=== PATIENT | male | born 1990 | race Caucasian/White ===

== ENCOUNTER 2017-03-12 11:09 | Inpatient (IN) | payer MEDICAID ==
[2017-03-12] MEDS ORDERED: Haloperidol Lactate 5 mg/mL 1mL Vial IM STA (11:26)
[2017-03-12] MEDS ORDERED: Haloperidol Lactate 5 mg/mL 1mL Vial ONE (11:30)
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
--- NOTE | 2017-03-12 14:01 | Diagnostic Imaging Report ---
CT scan of the brain without intravenous contrast HISTORY: Headache, trauma Total DLP equals 949 CTDI equals 44.6 Axial sections were obtained from the base of the skull to the vertex. The exam is limited due to difficulty in patient compliance and positioning. Prior exams are not available for comparison. There is marked ventriculomegaly. There is a disproportionate size of the ventricular system compared to the majority of cerebral sulci and subarachnoid cisterns suggesting hydrocephalus. No acute parenchymal abnormalities. No intracerebral hemorrhage. No mass effect or shift of midline structures. 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 IMPRESSION: 1. Limited exam due to difficulty in patient compliance and positioning. 2. Marked ventriculomegaly. Findings may be associated with hydrocephalus. Clinical correlation is needed. 3. No acute parenchymal abnormalities
[2017-03-12 18:04] VITALS: BP 126/87
[2017-03-12] MEDS ORDERED: Hydrocodone/APAP 10 mg/325 mg Tab PO PRN (18:20)
[2017-03-12] MEDS ORDERED: Hydrocodone/APAP 5mg/325mg Tab PO PRN (18:21)
[2017-03-12] MEDS ORDERED: Dextrose 50% 50 mL Abboject IVP PRN (20:15)
[2017-03-12 21:07] LABS: % BASOPHILS 0.8 % (0.0-2.0); % EOSINOPHILS 2.7 % (0.0-5.0); % LYMPHOCYTES 27.2 % (20.0-50.0); % NEUTROPHILS 60.3 % (40.0-80.0); HEMATOCRIT 38.4 % (41.0-60); HEMOGLOBIN 12.8 gm/dL (12-16); MEAN CELL VOLUME 84.6 fl (80-99); MEAN CORPUSCULAR HEMOGLOBIN 28.3 pg (26.0-30.0); MEAN CORPUSCULAR HGB CONC 33.4 pg (28.0-36.0); MEAN PLATELET VOLUME 8.2 fl; RED BLOOD COUNT 4.55 Mil/cmm (4.30-5.70); RED CELL DISTRIBUTION WIDTH 12.3 % (11.5-20.0); WHITE BLOOD COUNT 8.2 Th/cmm (4.8-10.8)
[2017-03-12 21:12] LABS: ANION GAP 12.5 (7.0-16.0); BUN - UREA NITROGEN 11 mg/dL (7-25); BUN/CREATININE RATIO 18.3; CALCIUM SERUM 9.9 mg/dL (8.6-10.3); CARBON DIOXIDE 26.5 mEq/L (21.0-31.0); CHLORIDE 98 mEq/L (98-107); CREATININE - SERUM 0.6 mg/dL (0.7-1.3); GLUCOSE 89 mg/dL (70-105); PLATELET COUNT 310 Th/cmm (150-400); SODIUM SERUM 133 mEq/L (136-145)
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
== END 2017-03-13 17:00 | disposition short-term general hospital (02) | DRG 42 ==
LOC: ER 11:09 → MSI 14:32
PROVIDERS: ADMIT Internal Medicine; ATTEND Internal Medicine
DX: G91.9 Hydrocephalus, unspecified (principal); E87.1 Hypo-osmolality and hyponatremia; R45.1 Restlessness and agitation; I34.0 Nonrheumatic mitral (valve) insufficiency; S00.93XA Contusion of unspecified part of head, initial encounter; F79 Unspecified intellectual disabilities; S00.91XA Abrasion of unspecified part of head, initial encounter; G40.909 Epilepsy, unspecified, not intractable, without status epilepticus; Y01.XXXA Assault by pushing from high place, initial encounter; Y93.89 Activity, other specified; Y92.89 Other specified places as the place of occurrence of the external cause; Y99.8 Other external cause status
CPT/HCPCS: 36415-UA; 70450-TC; 80048-TC; 82948-90; 85025-TC; J1200; J1630; J2060; Z7610